=== PATIENT | male | born 1965 ===

== ENCOUNTER 2020-09-10 14:43 | Emergency (ER) | payer BC ==
[2020-09-10 14:57] VITALS: BP 118/82
--- NOTE | 2020-09-10 14:59 | Event Note ---
ED Screening Note ED Screening Note: Patient presents for chest pain, shortness of breath, cough that began 2 weeks ago He has associated nausea Denies any fever, vomiting, diarrhea He denies any sick contacts, recent travel, recent surgeries Past medical history of hypertension and diabetes No medication allergies He just recently stopped smoking This initial assessment/diagnostic orders/clinical plan/treatment(s) is/are subject to change based on patients health status, clinical progression and re- assessment by fellow clinical providers in the ED. Further treatment and workup at subsequent clinical providers discretion. Patient/guardian urged not to elope from the ED as their condition may be serious if not clinically assessed and managed. Initial orders include: labs, cxr, ekg
[2020-09-10 15:22] LABS: Basophils # (Auto) 0.1 K/mm3 (0.0-0.1); Basophils % (Auto) 1.9 % (0.0-1.8); Eosinophils # (Auto) 0.9 K/mm3 (0.0-0.4); Eosinophils % (Auto) 14.5 % (0.0-4.3); Hematocrit 41.7 % (35.5-45.6); Hemoglobin 14.5 gm/dl (11.8-15.2); Lymphocytes # (Auto) 1.7 K/mm3 (1.2-5.4); Lymphocytes % (Auto) 26.9 % (13.4-35.0); Mean Corpuscular HGB Conc 35 % (32-34); Mean Corpuscular Volume 99 fl (84-94); Monocytes # (Auto) 0.7 K/mm3 (0.0-0.8); Monocytes % (Auto) 10.5 % (0.0-7.3); Platelet Count 262 K/mm3 (140-440); Red Cell Distribution Width 13.4 % (13.2-15.2)
[2020-09-10 15:41] LABS: Alanine Aminotransferase 21 units/L (7-56); Albumin 4.2 g/dL (3.9-5); Blood Urea Nitrogen 5 mg/dL (9-20); Calcium 8.6 mg/dL (8.4-10.2); Hemolysis Index 4
--- NOTE | 2020-09-10 15:42 | XRay Report ---
CHEST 2 VIEWS INDICATION: Chest Pain. COMPARISON: None FINDINGS: Support devices: None. Heart: Within normal limits. Lungs: No acute air space or interstitial disease. Pleura: No significant pleural effusion. No pneumothorax. Additional findings: None. IMPRESSION: 1. No acute findings. Signer Name: Torsten Henderson MD Signed: 09/10/2020 3:38 PM Workstation Name: [id number]
[2020-09-10 15:44] LABS: BUN/Creatinine Ratio 10
== END 2020-09-10 19:00 | disposition left against medical advice (07) ==
LOC: ED 14:43
DX: R07.89 Other chest pain (principal); R06.02 Shortness of breath; R05 Cough; R11.0 Nausea; Z53.21 Procedure and treatment not carried out due to patient leaving prior to being seen by health care provider
CPT/HCPCS: 36415; 71046; 80053; 83880; 84484; 85025; 85379

== ENCOUNTER 2020-09-11 11:42 | Emergency (ER) | payer BC ==
--- NOTE | 2020-09-11 12:56 | Emergency Department Report ---
ED General Adult HPI - General Chief complaint: Recheck/Abnormal Lab/Rx Stated complaint: GENERAL ILLNESS PUI?: No Source: patient Mode of arrival: Ambulatory Limitations: No Limitations - History of Present Illness Initial comments: 55-year-old male presents to the emergency room complaining of 2-week history of coughing. He also endorses sneezing runny nose and nasal congestion. Patient states that he was seen here yesterday but had to leave to give himself insulin. Patient had chest x-ray and labs done yesterday. Patient states he h as been taking yvcs-fsd-wqoxwvy Mucinex and kxeu-vng-xvdenww loratadine as well as Flonase. Patient does report he has smoked over 40 years and recently discontinued smoking 6 days ago. Patient does have a primary care provider Dr. Abdullahi Sanchez to third. He has not seen him in the clinic in over a month. Patient's vital signs are stable blood pressure 123/93 p.o. 2 is 96% on room air. Onset/Timin -: week(s) Severity scale (0 -10): 2 - Related Data Previous Rx's Medication Instructions Recorded Last Taken Type Albuterol Mdi (or & Nicu Only) 2 puff IH QID PRN #8.5 gram 09/11/20 Unknown Rx [ProAir HFA Inhaler] Benzonatate 200 mg PO Q8H PRN #15 capsule 09/11/20 Unknown Rx methylPREDNISolone [Medrol 4MG 4 mg PO QDAY #1 tab.ds.pk 09/11/20 Unknown Rx DOSEPAK (21 tabs)] Allergies Allergy/AdvReac Type Severity Reaction Status Date / Time No Known Allergies Allergy Unverified 09/11/20 11:54 ED Review of Systems ROS: Stated complaint: GENERAL ILLNESS Other details as noted in HPI ED Past Medical Hx - Past Medical History Hx Hypertension: Yes Hx Diabetes: Yes Additional medical history: pneumonia - Social History Smoking Status: Never Smoker Substance Use Type: None - Medications Home Medications: Home Medications Medication Instructions Recorded Confirmed Last Taken Type Albuterol Mdi (or & Nicu Only) 2 puff IH QID PRN #8.5 gram 09/11/20 Unknown Rx [ProAir HFA Inhaler] Benzonatate 200 mg PO Q8H PRN #15 capsule 09/11/20 Unknown Rx methylPREDNISolone [Medrol 4MG 4 mg PO QDAY #1 tab.ds.pk 09/11/20 Unknown Rx DOSEPAK (21 tabs)] ED Physical Exam - General Limitations: No Limitations General appearance: alert, in no apparent distress - Head Head exam: Present: atraumatic, normocephalic - Eye Eye exam: Present: normal appearance - ENT ENT exam: Present: mucous membranes moist - Neck Neck exam: Present: normal inspection, full ROM - Respiratory Respiratory exam: Present: wheezes, rhonchi - Cardiovascular Cardiovascular Exam: Present: regular rate, normal rhythm. Absent: systolic murmur, diastolic murmur, rubs, gallop - GI/Abdominal GI/Abdominal exam: Present: soft, normal bowel sounds - Back Exam Back exam: Present: full ROM - Neurological Exam Neurological exam: Present: alert, oriented X3, normal gait - Psychiatric Psychiatric exam: Present: normal affect, normal mood - Skin Skin exam: Present: warm, dry, intact, normal color. Absent: rash ED Course Vital Signs 09/11/20 11:55 Temperature 98.8 F ED Medical Decision Making - Medical Decision Making 55-year-old male presents to the emergency room complaining of 2-week history of coughing. He also endorses sneezing runny nose and nasal congestion. Patient states that he was seen here yesterday but had to leave to give himself insulin. Patient had chest x-ray and labs done yesterday. Patient states he has been taking pqib-fev-oayfjhs Mucinex and vmmd-iep-zbxbesm loratadine as well as Flonase. Patient does report he has smoked over 40 years and recently discontinued smoking 6 days ago. Patient does have a primary care provider Dr. Abdullahi Sanchez 3rd. He has not seen him in the clinic in over a month. Patient's vital signs are stable blood pressure 123/93 p.o. 2 is 96% on room air. EKG shows normal sinus rhythm chest x-ray that was done yesterday shows no acute abnormalities and labs are stable. Patient is being diagnosed with allergic rhinitis. Smoker's cough. Critical care attestation.: If time is entered above; I have spent that time in minutes in the direct care of this critically ill patient, excluding procedure time. ED Disposition Clinical Impression: Smokers' cough, Wheezy bronchitis Allergic rhinitis Qualifiers: Allergic rhinitis trigger: pollen Allergic rhinitis seasonality: seasonal Qualified Code(s): J30.1 - Allergic rhinitis due to pollen Disposition: DC-01 TO HOME OR SELFCARE Is pt being admited?: No Does the pt Need Aspirin: No Condition: Stable Instructions: Cough, Adult, Fqhy-kc-Belc, Allergic Rhinitis, Adult, Qxlq-qa-Pzpj, Chronic Bronchitis (ED) Additional Instructions: X-rays were negative for any acute findings. Labs are stable. I recommend to continue with your fjpx-qxm-weztfbo allergy medication regiment. You can take cough pills as prescribed. Increase your water intake. Follow-up with your primary care provider. Prescriptions: Benzonatate 200 mg PO Q8H PRN #15 capsule PRN Reason: Cough methylPREDNISolone [Medrol 4MG DOSEPAK (21 tabs)] 4 mg PO QDAY #1 tab.ds.pk Albuterol Mdi (or & Nicu Only) [ProAir HFA Inhaler] 2 puff IH QID PRN #8.5 gram PRN Reason: Shortness Of Breath Referrals: GIFTY MICHAEL JR, MD [Staff Physician] - 3-5 Days Forms: Work/School Release Form(ED)
[2020-09-11] MEDS ORDERED: ALBUTEROL 2.5 MG/3 ML NEBU IH ONE (13:21)
[2020-09-11] MEDS ORDERED: IPRATROPIUM 0.02% NEBU 2.5 ML IH ONE (13:21)
[2020-09-11] MEDS ORDERED: dexAMETHasone 20 MG/5 ML VIAL IM ONE (13:21)
[2020-09-11 16:34] VITALS: BP 148/90
--- NOTE | 2020-09-14 10:55 | Electrocardiograph Report ---
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
== END 2020-09-11 15:39 | disposition home or self-care (01) ==
LOC: ED 11:42
DX: J30.9 Allergic rhinitis, unspecified (principal); J41.0 Simple chronic bronchitis; I10 Essential (primary) hypertension; E11.9 Type 2 diabetes mellitus without complications; Z79.899 Other long term (current) drug therapy
CPT/HCPCS: 93005; 94640; 96372; 99282; J1100; 94644